=== PATIENT | male | born 1955 | race Caucasian/White ===

== ENCOUNTER 2021-05-17 09:09 | Outpatient (CLI) | payer MEDICARE, OTHER, SELFPAY ==
--- NOTE | 2021-05-17 09:19 | MR_ITS ---
WS: [id number] MRI RIGHT KNEE NONCONTRAST TECHNIQUE: Axial PD, coronal PD fat sat, coronal PD, sagittal PD, and sagittal PD fat-sat images obta ined. CLINICAL INFORMATION: INTERNAL DERANGEMENT RT KNEE COMPARISON: None. FINDINGS: Distal quadriceps and patella tendons are intact. Hypertrophic patella. Normal ACL and PCL. Moderate suprapatellar effusion. Prepatellar and infrapatellar soft tissue edema. Chronic thinning of the medial and lateral meniscus.Tiny meniscal cyst along the posterior horn later al meniscus measuring 6 mm. Complex tear involving the posterior horn medial meniscus extending to th e meniscal root. Associated edema. Complete loss of the joint space medial joint compartment with bon e-on-bone articulation. Subchondral edema involving the tibial plateau with a small subchondral lesio n. Subchondral lesion measures 10 mm. 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 Sub chondral edema in the patella. Normal lateral collateral ligament. Grade 1-2 injury involving the med ial collateral ligament with a small amount of fluid and edema along the superficial and deep fibers of the MCL. MCL appears grossly intact. MR/MR knee RT wo con* [id number] IMPRESSION: 1. Normal ACL and PCL. 2. Complex tear involving the posterior horn medial meniscus extending to the meniscal root. Associated edema. 3. Grade 1-2 injury involving the medial collateral ligament with a small amou nt of fluid and edema along the superficial and deep fibers of the MCL. 4. Tiny meniscal cyst along the posterior horn lateral meniscus measuring 6 mm . 5. Advanced joint space narrowing medial joint compartment with [id number] a rticulation and grade 3/4 chondromalacia. Osteochondral defect in the medial ti bial plateau measuring 10 mm. 6. Advanced narrowing patellofemoral articulation with grade IV chondromalacia . 7. Moderate suprapatellar effusion. Outbridge grading: grade IV: full-thickness cartilage loss with underlying bone reactive changes
== END 2021-05-17 09:10 | disposition home or self-care (01) ==
LOC: RADSHAW 09:18
PROVIDERS: PCP Family Medicine; Visit Provider Family Medicine
DX: M23.91 Unspecified internal derangement of right knee (principal); S83.231A Complex tear of medial meniscus, current injury, right knee, initial encounter; X58.XXXA Exposure to other specified factors, initial encounter; M23.051 Cystic meniscus, posterior horn of lateral meniscus, right knee; M25.461 Effusion, right knee
CPT/HCPCS: 73721